=== PATIENT | female | born 1990 | race Caucasian/White ===

== ENCOUNTER 2017-11-03 16:32 | Inpatient (IN) | payer OTHER ==
[2017-11-03] MEDS ORDERED: CARBOPROST 250 MCG INJ IM (19:00)
[2017-11-03] MEDS ORDERED: METHYLERGONOVINE 0.2 MG INJ IM (19:00)
[2017-11-03] MEDS ORDERED: OXYTOCIN 30 UNITS/LR 500 ML IV ×2 (19:00)
[2017-11-03] MEDS ORDERED: MISOPROSTOL 200 MCG TAB PR (19:00)
[2017-11-03] MEDS ORDERED: BUTORPHANOL 2 MG INJ IV (19:00)
[2017-11-03] MEDS ORDERED: LIDOCAINE 1% (MPF) 30 ML INJ INJ (19:00)
[2017-11-03 22:35] LABS: ADD MAN DIFF? NO
[2017-11-03] MEDS: LACTATED RINGER'S 1,000 ML IV (22:36)
[2017-11-03 22:38] LABS: WHITE BLOOD COUNT 11.9 10^3/ul (4.8-10.8)
[2017-11-03 22:38] LABS: ABNORMAL IP MESSAGE 1; BASOPHILS % 0.3 % (0.0-2.0); EOSINOPHILS # 0.1 10^3/ul (0.0-0.5); EOSINOPHILS % 0.4 % (0.0-7.0); HEMATOCRIT 38.6 % (37.0-47.0); HEMOGLOBIN 13.9 g/dl (12.0-16.0); LYMPHOCYTES # 2.8 10^3/ul (0.8-2.9); LYMPHOCYTES % 23.8 % (15.0-51.0); MEAN CORPUSCULAR HEMOGLOBIN 33.3 pg (29.0-33.0); MEAN CORPUSCULAR VOLUME 92.3 fl (82.0-101.0); MEAN PLATELET VOLUME 13.6 fl (7.4-10.4); MONOCYTE # 1.3 10^3/ul (0.3-0.9); MONOCYTES % 10.6 % (0.0-11.0); NEUTROPHIL # 7.6 10^3/ul (1.6-7.5); NEUTROPHILS % 64.1 % (39.0-77.0); PLATELET COUNT 159 10^3/UL (140-415); RED BLOOD COUNT 4.18 10^6/ul (4.20-5.40); RED CELL DISTRIBUTION WIDTH 11.9 % (11.5-14.5)
[2017-11-03 22:42] LABS: POSITIVE DIFF @See below
[2017-11-03] MEDS: OXYTOCIN 30 UNITS/LR 500 ML IV (22:56)
[2017-11-03 22:57] LABS: INR 0.91; PROTIME 12.3 Sec (11.9-14.9)
[2017-11-03 22:58] LABS: PARTIAL THROMBOPLASTIN TIME 27.3 Sec (25.0-35.0)
[2017-11-03 23:29] LABS: HEPATITIS B SURFACE ANTIGEN NEGATIVE (NEGATIVE)
[2017-11-04] MEDS: LACTATED RINGER'S 1,000 ML IV ×4 (05:02→21:47)
[2017-11-04] MEDS ORDERED: OXYTOCIN 30 UNITS/LR 500 ML BAG IV (07:00)
[2017-11-04] MEDS: MISOPROSTOL 25 MCG CAPSULE PO ×4 (11:16→23:00)
[2017-11-04 22:03] LABS: RAPID PLASMA REAGIN NONREACTIVE (NR)
[2017-11-04] MEDS ORDERED: BUPIVACAINE 0.75%/DEXT (SPINAL) 2 ML INJ (22:44)
[2017-11-04] MEDS ORDERED: FENTAnyl 50 MCG/ML VIAL (22:44)
[2017-11-04] MEDS ORDERED: morphine SULFATE/PF (10 MG/10 ML) INJ (22:44)
[2017-11-04] MEDS ORDERED: MISOPROSTOL 200 MCG TAB PR (23:00)
[2017-11-04] MEDS ORDERED: OXYCODONE/ACETAMINOPHEN (5/325) TAB PO (23:00)
[2017-11-04] MEDS ORDERED: NA PHOSPHATE/BIPHOS 133 ML ENEMA PR (23:00)
[2017-11-04] MEDS ORDERED: CEFAZOLIN 2 GM/50 ML (PMX) 50 ML IVPB (23:01)
[2017-11-04] MEDS ORDERED: PHENYLephrine (100 MCG/ML) 5ML SYG (23:02)
[2017-11-04] MEDS ORDERED: ONDANSETRON 4 MG INJ (23:13)
[2017-11-04] MEDS ORDERED: DEXAMETHASONE 4 MG/ML 1 ML INJ (23:13)
[2017-11-04] MEDS: CEFAZOLIN 2 GM/50 ML (PMX) 50 ML IV (23:43)
[2017-11-04 23:47] LABS: AADO2 Cord Arterial 71.2 mmHg; Arterial Cord Blood pCO2 56.7 mmHG (25-50); CBA Base Excess -5.4 mmol/L; CBA COHb 0 %; CBA Total Hemglobin 16.7 g/dl; Cord Blood Arterial pO2 10.6 mmHG (15.0-45.0); Fraction OxyHgb Cord Arterial 12.7 %; MODE ROOM AIR; MetHgb Cord Arterial 2.1 %; Site CORD
[2017-11-04 23:48] LABS: CBV Base Excess -2.3 mmol/L; CBV COHb 0.3 %; CBV Oxygen Sat 17.7 mmHG; CBV Total Hemglobin 16.5 g/dl; Cord Blood Venous pO2 14.1 mmHG (15.0-45.0); Fraction OxyHgb Cord Venous 17.3 %; MODE ROOM AIR; Sample Type Blood venous; Site CORD
[2017-11-05] MEDS ORDERED: HYDROmorphONE 0.5 MG/0.5 ML SYG IV ×2 (00:30)
[2017-11-05] MEDS ORDERED: ONDANSETRON 4 MG INJ IV (00:30)
[2017-11-05] MEDS ORDERED: DIPHENHYDRAMINE 50 MG INJ IV ×2 (00:30)
[2017-11-05] MEDS ORDERED: NALOXONE (0.4 MG/ML) INJ IV ×2 (00:30)
[2017-11-05] MEDS ORDERED: ZOLPIDEM 5 MG TAB PO (00:30)
[2017-11-05] MEDS: ONDANSETRON 4 MG INJ IV (00:38)
[2017-11-05] MEDS: OXYTOCIN 30 UNITS/LR 500 ML IV (00:53)
[2017-11-05] MEDS: METOCLOPRAMIDE 10 MG INJ IV (02:23)
[2017-11-05] MEDS: KETOROLAC 30 MG INJ IV ×3 (02:50→20:44)
[2017-11-05] MEDS: LACTATED RINGER'S 1,000 ML IV ×2 (06:15→12:24)
[2017-11-05] MEDS: SENNA/DOCUSATE NA (8.6MG/50MG) TAB PO ×2 (08:37→20:44)
[2017-11-05 09:48] LABS: ADD MAN DIFF? NO
[2017-11-05 09:49] LABS: ABNORMAL IP MESSAGE 1; BASOPHILS % 0.1 % (0.0-2.0); LYMPHOCYTES # 1.3 10^3/ul (0.8-2.9); LYMPHOCYTES % 6.9 % (15.0-51.0); MEAN CORPUSCULAR HEMOGLOBIN 32.9 pg (29.0-33.0); MEAN CORPUSCULAR HGB CONC 36.4 g/dl (32.0-37.0); MEAN CORPUSCULAR VOLUME 90.4 fl (82.0-101.0); MEAN PLATELET VOLUME 13.1 fl (7.4-10.4); MONOCYTE # 1.3 10^3/ul (0.3-0.9); MONOCYTES % 7.3 % (0.0-11.0); NEUTROPHIL # 15.7 10^3/ul (1.6-7.5); NEUTROPHILS % 85.2 % (39.0-77.0); PLATELET COUNT 143 10^3/UL (140-415); RED BLOOD COUNT 3.65 10^6/ul (4.20-5.40); RED CELL DISTRIBUTION WIDTH 11.8 % (11.5-14.5)
[2017-11-05 09:49] LABS: WHITE BLOOD COUNT 18.4 10^3/ul (4.8-10.8)
[2017-11-05 09:57] LABS: POSITIVE DIFF @See below
[2017-11-06] MEDS: OXYCODONE/ACETAMINOPHEN (5/325) TAB PO ×2 (04:13→14:07)
[2017-11-06] MEDS: IBUPROFEN 600 MG TAB PO ×5 (05:25→23:55)
[2017-11-06] MEDS: SENNA/DOCUSATE NA (8.6MG/50MG) TAB PO ×2 (09:14→21:47)
[2017-11-06 11:49] LABS: ADD MAN DIFF? NO
[2017-11-06 11:52] LABS: WHITE BLOOD COUNT 11.8 10^3/ul (4.8-10.8)
[2017-11-06 11:52] LABS: ABNORMAL IP MESSAGE 1; BASOPHILS % 0.3 % (0.0-2.0); EOSINOPHILS % 0.1 % (0.0-7.0); HEMATOCRIT 29.6 % (37.0-47.0); HEMOGLOBIN 10.5 g/dl (12.0-16.0); LYMPHOCYTES # 2.2 10^3/ul (0.8-2.9); LYMPHOCYTES % 18.5 % (15.0-51.0); MEAN CORPUSCULAR HEMOGLOBIN 33.7 pg (29.0-33.0); MEAN CORPUSCULAR HGB CONC 35.5 g/dl (32.0-37.0); MEAN CORPUSCULAR VOLUME 94.9 fl (82.0-101.0); MEAN PLATELET VOLUME 13.8 fl (7.4-10.4); MONOCYTES % 8.1 % (0.0-11.0); NEUTROPHIL # 8.6 10^3/ul (1.6-7.5); NEUTROPHILS % 72.6 % (39.0-77.0); PLATELET COUNT 153 10^3/UL (140-415); RED BLOOD COUNT 3.12 10^6/ul (4.20-5.40); RED CELL DISTRIBUTION WIDTH 12.2 % (11.5-14.5)
[2017-11-06 11:53] LABS: POSITIVE DIFF @See below
[2017-11-07] MEDS: IBUPROFEN 600 MG TAB PO ×2 (06:08→11:41)
[2017-11-07] MEDS: SENNA/DOCUSATE NA (8.6MG/50MG) TAB PO (08:41)
[2017-11-07] MEDS: LANOLIN 7 GM TUBE TOP (08:45)
[2017-11-07] MEDS: DIPHTH/TET/ACEL PERTUSS (ADULT) 0.5 ML VIAL IM* (08:46)
[2017-11-07] MEDS: MEASLES,MUMPS,RUBELLA VACCINE INJ SC* (09:00)
== END 2017-11-07 15:14 | disposition home or self-care (01) | DRG 766 ==
LOC: OBT 16:32 → PP1 11-05 03:10 → L-D 16:33 → OBT 19:09 → L-D 18:20
PROVIDERS: Specialist
PROC: 10D00Z1 Extraction of Products of Conception, Low, Open Approach (ICD-10-PCS; principal; 2017-11-04 22:15)
DX: O48.0 Post-term pregnancy (principal); Z37.0 Single live birth; Z3A.40 40 weeks gestation of pregnancy; O76 Abnormality in fetal heart rate and rhythm complicating labor and delivery
CPT/HCPCS: 36415; 36600; 76816; 76818; 82803; 85025; 85610; 85730; 86592; 86850; 86900; 86901; 87340; 99464